=== PATIENT | female | born 1945 | race Caucasian/White ===

== ENCOUNTER 2022-02-06 17:35 | Emergency (ER) | payer MEDICARE, SELFPAY ==
--- NOTE | ~2022-02-06 | XR_ITS ---
EXAMINATION: XR abdomen/kub 1V DATE: 02/06/2022 18:32 INDICATION: 2 weeks of vomiting and constipation TECHNIQUE: A supine view of the abdomen on 2 radiographs was obtained. COMPARISON: None. FINDINGS: Small amount of gas scattered throughout multiple nondilated loops of small bowel. Small to moderate amount of stool and additional gas scattered throughout the colon. No dilated loops of gas-filled bow el to suggest obstruction. Small round calcified granuloma projecting over the dome of the liver. Vis ualized lung bases are clear. Mild S-shaped curvature of the lumbar and lower thoracic spine with sev ere lumbar spondylosis. Additional small round calcified likely granuloma projecting lateral to the l eft greater trochanter. IMPRESSION: 1. Nonspecific nonobstructive bowel gas pattern with small to moderate amount of stool scattered thro ughout the colon. Reviewed, dictated and finalized at location A. IMPRESSION: 1. Nonspecific nonobstructive bowel gas pattern with small to moderate amount o f stool scattered throughout the colon.
[2022-02-06 17:45] VITALS: BP 101/47; PULSE 111; RESP 14; TEMP 35.7; O2SAT 99
[2022-02-06 18:05] VITALS: BP 101/47; PULSE 111; RESP 14; TEMP 35.7; O2SAT 99
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
[2022-02-06] MEDS: KETOROLAC (*BKC) 60 MG/2 ML VIAL IM (18:36)
== END 2022-02-06 19:36 | disposition left against medical advice (07) ==
LOC: EXPBETH 17:41
PROVIDERS: Emergency Provider Registered Nurse
DX: K59.00 Constipation, unspecified (principal); R11.2 Nausea with vomiting, unspecified; J44.9 Chronic obstructive pulmonary disease, unspecified; E11.9 Type 2 diabetes mellitus without complications; I10 Essential (primary) hypertension; E03.9 Hypothyroidism, unspecified; Z79.4 Long term (current) use of insulin; F17.210 Nicotine dependence, cigarettes, uncomplicated; G89.29 Other chronic pain
CPT/HCPCS: 74018; 96372; 99213; G0463; J1885